=== PATIENT | male | born 1960 | race Caucasian/White ===

== ENCOUNTER 2022-07-17 07:04 | Emergency (ER) | payer OTHER ==
[~2022-07-17] VITALS: Ht 190.5 cm; Wt 122.5 kg
[~2022-07-17 07:04] MED LIST: Cialis5 MG; LOSA25; XARELTO20 MG
[2022-07-17 07:53] LABS: BASOPHILS ABSOLUTE AUTO 0.04 K/mm3 (0.00-0.23); BASOPHILS PERCENT AUTO 0 % (0-2); EOSINOPHILS ABSOLUTE AUTO 0.06 K/mm3 (0.00-0.68); EOSINOPHILS PERCENT AUTO 0 % (0-6); Hematocrit 44.4 % (37.0-53.0); Hemoglobin 14.9 g/dL (13.5-17.5); IMMATURE GRAN ABSOLUTE AUTO 0.05 K/mm3 (0.00-0.10); IMMATURE GRAN PERCENT AUTO 0 % (0-1); LYMPHOCYTES ABSOLUTE AUTO 1.25 K/mm3 (0.84-5.20); LYMPHOCYTES PERCENT AUTO 9 % (21-46); MONOCYTES ABSOLUTE AUTO 0.75 K/mm3 (0.16-1.47); MONOCYTES PERCENT AUTO 5 % (4-13); Mean Corpuscular HGB 30.6 pg (26.0-34.0); Mean Corpuscular HGB Conc 33.6 g/dL (31.5-36.5); Mean Corpuscular Volume 91 fL (80-100); Mean Platelet Volume 9.9 fL (9.1-12.4); NEUTROPHILS ABSOLUTE AUTO 11.95 K/mm3 (1.96-9.15); NEUTROPHILS PERCENT AUTO 85 % (41-73); Platelet Count 212 K/mm3 (150-400); RDW Coefficient Variation 14.2 % (11.7-14.2); RDW Standard Deviation 48.2 fL (35.1-46.3); Red Blood Cell Count 4.87 M/mm3 (4.30-5.90)
[2022-07-17] MEDS ORDERED: Cardizem LA120 MG PO (07:57)
[2022-07-17] MEDS ORDERED: HYDROCHLOROT 12.5MG (07:57)
[2022-07-17 08:19] LABS: Albumin, Blood 3.7 g/dL (3.4-5.0); Albumin/Globulin Ratio 0.9 (0.8-1.8); Bilirubin, Total 0.8 mg/dL (0.1-1.0); Bun/Creatinine Ratio 23.5 (12.0-20.0); Calcium, Blood 9.4 mg/dL (8.5-10.1); Creatinine, Blood 1.02 mg/dL (0.60-1.20); Globulin, Blood 4.1 g/dL (2.2-4.0); Potassium, Blood 3.8 mmol/L (3.5-5.5); Total Protein, Blood 7.8 g/dL (6.4-8.2)
[2022-07-17] MEDS ORDERED: FAMO20 PO (11:11)
[2022-07-17] MEDS ORDERED: ALMACONE SUSPE355 ML PO (11:11)
[2022-07-17] MEDS ORDERED: DICY20 PO (11:11)
== END 2022-07-17 12:25 | disposition home or self-care (01) ==
LOC: ER 07:04
PROVIDERS: Student in an Organized Health Care Education/Training Program
DX: R10.13 Epigastric pain (principal); R94.31 Abnormal electrocardiogram [ECG] [EKG]; Z79.02 Long term (current) use of antithrombotics/antiplatelets; Z95.0 Presence of cardiac pacemaker; Z95.2 Presence of prosthetic heart valve
CPT/HCPCS: 36415; 71045; 71275; 74175; 76705; 80053; 83690; 84484; 85025; 93005; 93010; A9270; J1885; J2270; J2405; Q9967

== ENCOUNTER 2022-10-13 15:47 | Emergency (ER) | payer OTHER ==
[~2022-10-13] VITALS: Ht 177.8 cm; Wt 113.4 kg
[~2022-10-13 15:47] MED LIST changes: +ALMACONE SUSPE355 ML PO; +Cardizem LA120 MG PO; +DICY20 PO; +FAMO20 PO; +HYDROCHLOROT 12.5MG
--- NOTE | 2022-10-13 16:37 | NUR ---
Spiritual Care - Nurse request - ED Code SHADIA'S Pt. was getting compressions, before TOD called at approx. 3:55. Met with family in ED consult room, with Nurse Die Sinking Machine Operator and attending ED Doc. With empathy and calming presence assisted family at their request to view the Pt. Pt. is a Hazardous Waste Technician. Prayer was led spontaneously by the Pts. daughter. Comfort and support is given to the family. Facilitated a discussion about communication priorities. Stayed with family, and walked them to their car. Spouse and family verbalized gratitude for the spiritual care support. The family has chosen [facility] in [place] for home services.
[2022-10-13 20:20] LABS: Calcium, Ionized (POC) 1.19 mmol/L (1.10-1.46); Chloride (POC) 103 mmol/L (98-108); Creatinine (POC) 1.5 mg/dL (0.8-1.3); Glucose (ISTAT POC) 258 mg/dL (70-99); Hemoglobin (POC) 15.3 g/dL (13.5-17.5); Potassium (POC) 3.9 mmol/L (3.5-5.5); Sodium (POC) 140 mmol/L (135-148); Total CO2 (POC) 25 mmol/L (21-32)
== END 2022-10-13 17:50 ==
LOC: ER 15:47
PROVIDERS: Emergency Medicine
DX: I46.9 Cardiac arrest, cause unspecified (principal); I49.01 Ventricular fibrillation; Z79.899 Other long term (current) drug therapy; Z79.02 Long term (current) use of antithrombotics/antiplatelets; Z95.0 Presence of cardiac pacemaker; Z95.2 Presence of prosthetic heart valve
CPT/HCPCS: 36415; 80047; 85014; 92950